=== PATIENT | male | born 1990 ===

== ENCOUNTER 2025-03-06 09:00 | Day surgery (SDC) | payer OTHER ==
[2025-03-03 09:33] VITALS: BP 145/90
[~2025-03-06] VITALS: Ht 175.3 cm; Wt 72.6 kg
[2025-03-06] MEDS ORDERED: VANCOMYCIN HCL 1,000 MG VIAL ONE (10:38)
[2025-03-06] MEDS ORDERED: POLYMYXIN B SULFATE 500,000 U VIAL ONE (10:38)
[2025-03-06] MEDS ORDERED: CEFAZOLIN SODIUM 1,000 MG VIAL ONE ×2 (10:38→15:30)
[2025-03-06] MEDS ORDERED: CEFAZOLIN SODIUM 1,000 MG VIAL IV ONE (12:45)
[2025-03-06] MEDS ORDERED: ACETAMINOPHEN WITH CODEINE 1 UDTAB TABLET PO PRN (12:45)
[2025-03-06] MEDS ORDERED: DUI500 PO (12:46)
[2025-03-06] MEDS ORDERED: ACETAMINOPHEN-1 EAC2 PO (12:46)
[2025-03-06] MEDS ORDERED: CEFADROXIL 500 MG CAPSULE PO SCH (21:00)
== END 2025-03-06 17:50 | disposition home or self-care (01) ==
LOC: CIR.AMB 09:00
PROVIDERS: ATTEND Orthopaedic Surgery Sports Medicine
DX: M76.61 Achilles tendinitis, right leg (principal)